=== PATIENT | female | born 1995 | race Caucasian/White ===

== ENCOUNTER 2020-03-28 06:51 | Emergency (ER) | payer OTHER, SELFPAY ==
--- NOTE | 2020-03-28 07:19 | US_ITS ---
EXAMINATION: US PELVIS CLINICAL INFORMATION: Right-sided cramping and bleeding. COMPARISON: None TECHNIQUE: Ultrasound of the pelvis is performed using both transabdominal and transvaginal transducers along with Doppler. Transvaginal imaging is performed due to inadequate visualization transabdominally. FINDINGS: UTERUS: The uterus is anteverted, anteflexed and measures 5.6 cm in length, 2.2 cm in AP and 3.3 cm in transverse dimension. The endometrial thickness is 0.4 cm. The uterus is homogeneous in echotexture. There is no focal lesion. ADNEXA: Both ovaries are visualized. There is normal color flow to the adnexa. There is no ovarian torsion. There is no pelvic ascites or fluid collection. Right ovary is not visualized. Left ovary measures 3.0 x 1.6 x 1.3 cm and volume 3.3 mL. It was visualized on transabdominal view only. It appears unremarkable. There is a small amount of free fluid in the cul-de-sac. US/US pelvic complete IMPRESSION: Unremarkable uterus. Unremarkable left ovary. Right ovary not seen.
--- NOTE | 2020-03-28 07:21 | ED.FEMALEGU ---
HPI - Female Genitourinary General Chief complaint: Abdominal Pain Stated complaint: vag bleeding Time Seen by Provider: 03/28/20 06:54 Source: patient Mode of arrival: ambulatory Limitations: no limitations History of Present Illness MD elicited complaint: vaginal bleeding Pertinent past history: other (due for depo 05/09) Onset (ago): day(s) (yesterday) Location of symptoms: pelvis Severity: moderate Female Urogenital Radiation: Non-Radiating Quality of pain: cramping Consistency: intermittent Vaginal bleeding: moderate, heavy and clots Exacerbating factors: none Relieving factors: none Associated symptoms: loss of appetite and other (noted unsure but over past 2 weeks lost 9 lbs ) Treatment prior to arrival: none Patient : No Related Data Allergies Allergy/AdvReac Type Severity Reaction Status Date / Time No Known Allergies Allergy Verified 03/28/20 07:19 Review of Systems Review of Systems: Constitutional : No Fever, No Chills ENT/Mouth : No sore throat, No Rhinorrhea Eyes: No Eye Pain, No Redness Cardiovascular : No Chest Pain, No SOB Respiratory : No Cough, No Sputum, No Wheezing Gastrointestinal : positive Nausea, No Vomiting, No Diarrhea, positive abdominal pain, Genitourinary : positive irregular bleeding, No Dysuria, No Urinary Frequency, positive pelvic pain Musculoskeletal : No Myalgias Skin : No rash Neuro : No Weakness, No Headache Psych : No Anxiety/Panic, No Depression Heme/Lymph: No bruising, No Lymphadenopathy Endocrine : No Polyuria, No Polydipsia All other systems reviewed and are negative PMFSH Past Medical History Attestation statement: The following information was validated with the patient. Medical History IBS (irritable bowel syndrome) Social History Social History (Updated 03/28/20 @ 07:23 by Deb Jiménez DO) Alcohol intake: unknown Smoking Status: Never smoker Use of substances other than those prescribed or required for medical reasons: Unknown Advance Directives: No Advance Directives Information Provided: No Physical Exam Vital Signs: Vital Signs: Last Vital Signs Temp 98.7 F 03/28/20 07:22 Pulse 88 03/28/20 07:22 Resp 18 03/28/20 07:22 BP 104/54 L 03/28/20 09:49 Pulse Ox 97 03/28/20 07:22 Body Mass Index 18.6 Appearance: Alert. Oriented X3. No acute distress. Eyes: Pupils equal, round and reactive to light. ENT: Pharynx normal. Neck: Normal inspection. Neck supple. CVS: Normal heart rate and rhythm. Pulses normal. Respiratory: No respiratory distress. Breath sounds normal. Abdomen: Soft and nontender. Skin: Skin warm and dry. Normal skin color. Normal skin turgor. Extremities: No lower extremity edema. No calf ttp Neuro: Oriented X 3. No motor deficit. No sensory deficit. Course Course Course Narrative: due to family issue has to leave prior to US read MDM - Female Genitourinary MDM Narrative Medical decision making narrative: 25 yo female on depo x 1 year no issues but since yesterday c/o vaginal bleeding with clots - no known bleeding issues, R sided pain at times will need labs, hcg, US to evaluate ovaries and uterus, dispo per results and findings. Lab Data Result diagrams: 03/28/20 07:37 03/28/20 07:38 Labs: Lab Results 03/28/20 03/28/20 03/28/20 Range/Units 07:37 07:37 07:38 WBC 6.0 (4.8-10.8) X10*3/uL RBC 4.52 (4.20-5.50) X10*6/uL Hgb 13.6 (12.0-16.0) g/dl Hct 41.1 (37-47) % MCV 90.9 (80-98) fL MCH 30.1 (27.0-33.0) pg MCHC 33.1 (31.0-35.0) g/dl RDW 11.9 (11.0-16.0) % Plt Count 273 (160-400) X10*3/uL MPV 10.0 (9.4-12.3) fL Immature Gran % (Auto) 0.3 (0.0-0.4) % Neut % (Auto) 65.4 (45-73) % Lymph % (Auto) 25.8 (20-40) % [place] % (Auto) 6.3 (2-11) % Eos % (Auto) 1.2 (0-4) % Baso % (Auto) 1.0 (0-2) % Lymph # (Auto) 1.6 (1.2-4.9) X10*3/uL [place] # (Auto) 0.4 (0.1-1.2) X10*3/uL Eos # (Auto) 0.1 (0.0-0.4) X10*3/uL Baso # (Auto) 0.1 (0.0-0.2) X10*3/uL Abs Immat Gran (auto) 0.02 (0.00-0.03) X10*3/uL Absolute Neuts (auto) 4.0 (2.0-8.3) X10*3/uL Absolute Nucleated RBC 0.000 (0.0-0.012) X10*3/uL Nucleated RBC % (auto) 0.0 (0.0-0.2) /100WBC PT 13.2 H (10.8-13.0) SEC INR 1.1 (0.9-1.1) APTT 31.9 (24.1-38.0) SEC Sodium 140 (135-145) mmol/L Potassium 4.1 (3.3-5.1) mmol/l Chloride 109 H (96-108) mmol/L Carbon Dioxide 24 (22-29) mmol/L Anion Gap 11 L (12-20) BUN 10 (9-16) mg/dL Creatinine 0.89 (0.5-1.4) mg/dL Estim Creat Clear Calc 71.7 Estimated GFR > 60 Random Glucose 89 (60-115) mg/dL Calcium 9.3 (8.4-10.2) mg/dL Magnesium 2.3 (1.6-2.6) mg/dL Total Bilirubin 0.9 (0.0-1.0) mg/dL Direct Bilirubin 0.4 (0.0-0.5) mg/dL AST 17 (5-31) U/L ALT 8 (0-31) U/L Alkaline Phosphatase 54 (39-117) U/L Total Protein 6.8 (6.5-8.0) g/dL Albumin 4.6 (3.5-5.0) g/dL Beta HCG, Quant < 2 mIU/mL Urine Color Urine Appearance Urine pH (5.0-8.0) Ur Specific [place] (1.005-1.025) Urine Protein (NEG-TRACE) MG/DL Urine Glucose (UA) (NEG) MG/DL Urine Ketones (NEG) MG/DL Urine Blood (NEG) Urine Nitrite (NEG) Ur Leukocyte Esterase (NEG) Urine RBC (0) /HPF Urine WBC (0-4) /HPF Ur Squamous Epith Cells /LPF Urine Bacteria /LPF Urine Mucus /LPF 03/28/20 Range/Units 08:17 WBC (4.8-10.8) X10*3/uL RBC (4.20-5.50) X10*6/uL Hgb (12.0-16.0) g/dl Hct (37-47) % MCV (80-98) fL MCH (27.0-33.0) pg MCHC (31.0-35.0) g/dl RDW (11.0-16.0) % Plt Count (160-400) X10*3/uL MPV (9.4-12.3) fL Immature Gran % (Auto) (0.0-0.4) % Neut % (Auto) (45-73) % Lymph % (Auto) (20-40) % [place] % (Auto) (2-11) % Eos % (Auto) (0-4) % Baso % (Auto) (0-2) % Lymph # (Auto) (1.2-4.9) X10*3/uL [place] # (Auto) (0.1-1.2) X10*3/uL Eos # (Auto) (0.0-0.4) X10*3/uL Baso # (Auto) (0.0-0.2) X10*3/uL Abs Immat Gran (auto) (0.00-0.03) X10*3/uL Absolute Neuts (auto) (2.0-8.3) X10*3/uL Absolute Nucleated RBC (0.0-0.012) X10*3/uL Nucleated RBC % (auto) (0.0-0.2) /100WBC PT (10.8-13.0) SEC INR (0.9-1.1) APTT (24.1-38.0) SEC Sodium (135-145) mmol/L Potassium (3.3-5.1) mmol/l Chloride (96-108) mmol/L Carbon Dioxide (22-29) mmol/L Anion Gap (12-20) BUN (9-16) mg/dL Creatinine (0.5-1.4) mg/dL Estim Creat Clear Calc Estimated GFR Random Glucose (60-115) mg/dL Calcium (8.4-10.2) mg/dL Magnesium (1.6-2.6) mg/dL Total Bilirubin (0.0-1.0) mg/dL Direct Bilirubin (0.0-0.5) mg/dL AST (5-31) U/L ALT (0-31) U/L Alkaline Phosphatase (39-117) U/L Total Protein (6.5-8.0) g/dL Albumin (3.5-5.0) g/dL Beta HCG, Quant mIU/mL Urine Color DARK YELLOW Urine Appearance HAZY Urine pH 6.0 (5.0-8.0) Ur Specific [place] >= 1.030 H (1.005-1.025) Urine Protein NEG (NEG-TRACE) MG/DL Urine Glucose (UA) NEG (NEG) MG/DL Urine Ketones 5 (NEG) MG/DL Urine Blood TRACE (NEG) Urine Nitrite NEG (NEG) Ur Leukocyte Esterase NEG (NEG) Urine RBC 1-4 (0) /HPF Urine WBC 0-2 (0-4) /HPF Ur Squamous Epith Cells 3+ /LPF Urine Bacteria NONE /LPF Urine Mucus 3+ /LPF Discharge Plan Discharge Clinical Impression: Abnormal vaginal bleeding Patient Disposition: Home, Self-Care Instructions: Dysfunctional Uterine Bleeding (ED) Additional Instructions: return to ED for any worsening symptoms or concerns you left prior to US results we will call you [facility] any abnormality Referrals: Rosa Maria Bazzi MD [Primary Care Provider] - 2 days (or your OBGYN provider within the next week) Stand Alone Forms: Work/School Release
[2020-03-28 07:22] VITALS: BP 125/75; PULSE 88; RESP 18; TEMP 37.1; O2SAT 97; BMI 18.6
[2020-03-28 07:46] LABS: Basophils Absolute Auto 0.1 X10*3/uL (0.0-0.2); Eosinophils Absolute Auto 0.1 X10*3/uL (0.0-0.4); Eosinophils Percent Auto 1.2 % (0-4); Hematocrit 41.1 % (37-47); Hemoglobin 13.6 g/dl (12.0-16.0); Imm Gran Abs Auto 0.02 X10*3/uL (0.00-0.03); Imm Gran Pct Auto 0.3 % (0.0-0.4); Lymphocytes Absolute Auto 1.6 X10*3/uL (1.2-4.9); Lymphocytes Percent Auto 25.8 % (20-40); MANUAL DIFF FLAG NO; Mean Corpuscular HGB Conc 33.1 g/dl (31.0-35.0); Mean Corpuscular Hemoglobin 30.1 pg (27.0-33.0); Mean Corpuscular Volume 90.9 fL (80-98); Monocytes Absolute Auto 0.4 X10*3/uL (0.1-1.2); Monocytes Percent Auto 6.3 % (2-11); Neutrophils Percent Auto 65.4 % (45-73); Platelet Count 273 X10*3/uL (160-400); Red Blood Count 4.52 X10*6/uL (4.20-5.50); Red Cell Distribution Width 11.9 % (11.0-16.0)
[2020-03-28 07:57] LABS: INTERNATIONAL NORM RATIO 1.1 (0.9-1.1); Prothrombin Time 13.2 SEC (10.8-13.0)
[2020-03-28 08:00] LABS: Partial Thromboplastin Time 31.9 SEC (24.1-38.0)
[2020-03-28 08:15] LABS: Alanine Aminotransferase 8 U/L (0-31); Albumin Level 4.6 g/dL (3.5-5.0); Alkaline Phosphatase 54 U/L (39-117); Anion Gap 11 (12-20); Aspartate Amino Transferase 17 U/L (5-31); Bilirubin Direct 0.4 mg/dL (0.0-0.5); Bilirubin Total 0.9 mg/dL (0.0-1.0); Blood Urea Nitrogen 10 mg/dL (9-16); Calcium 9.3 mg/dL (8.4-10.2); Carbon Dioxide 24 mmol/L (22-29); Chloride 109 mmol/L (96-108); Creatinine Clr Calc Pharmacy 71.7; Estimated Glomerular Filt Rate > 60; Glucose Random 89 mg/dL (60-115); Magnesium 2.3 mg/dL (1.6-2.6); Potassium 4.1 mmol/l (3.3-5.1); Sodium 140 mmol/L (135-145); Total Protein 6.8 g/dL (6.5-8.0)
[2020-03-28 08:22] LABS: HCG Quantitative < 2 mIU/mL
[2020-03-28 09:04] LABS: Glucose Urine UA NEG (NEG); Leukocyte Esterase Urine NEG (NEG); Nitrite Urine NEG (NEG); Specific Gravity - Urine >= 1.030 (1.005-1.025); Urine Blood TRACE (NEG); Urine Ketones 5 MG/DL (NEG); Urine Protein NEG (NEG-TRACE)
[2020-03-28 09:06] LABS: Appearance Urine HAZY; Color Urine DARK YELLOW
[2020-03-28 09:11] LABS: Mucus Urine 3+ /LPF; Squamous Epithelial Cell Urine 3+ /LPF; WBC Urine 0-2 /HPF (0-4)
[2020-03-28 09:49] VITALS: BP 104/54
== END 2020-03-28 10:12 | disposition home or self-care (01) ==
PROVIDERS: Emergency Provider Emergency Medicine; PCP Internal Medicine
DX: N93.9 Abnormal uterine and vaginal bleeding, unspecified (principal); R10.2 Pelvic and perineal pain
CPT/HCPCS: 36415; 76856; 80048; 80076; 81001; 83735; 84702; 85025; 85610; 85730; 99284

== ENCOUNTER 2020-07-11 14:27 | Outpatient (REF) | payer OTHER, SELFPAY ==
[2020-07-11 14:47] LABS: COVID-19 Test Negative (Negative); IDNOW Serial# 55D5AD1C
== END 2020-07-11 14:28 | disposition home or self-care (01) ==
LOC: HO.EMPCOV 14:27
PROVIDERS: Visit Provider Internal Medicine
DX: Z20.822 Contact with and (suspected) exposure to COVID-19 (principal)
CPT/HCPCS: 36415; 87635; C9803

== ENCOUNTER 2020-07-15 08:34 | Outpatient (REF) | payer OTHER, SELFPAY ==
[2020-07-15 08:55] LABS: COVID-19 Test Negative (Negative); IDNOW Serial# 55D5AD1C
== END 2020-07-15 08:35 | disposition home or self-care (01) ==
LOC: HO.EMPCOV 08:34
PROVIDERS: Visit Provider Internal Medicine
DX: Z20.822 Contact with and (suspected) exposure to COVID-19 (principal)
CPT/HCPCS: 36415; 87635; C9803

== ENCOUNTER 2020-07-17 13:26 | Outpatient (REF) | payer OTHER, SELFPAY ==
[2020-07-17 14:08] LABS: COVID-19 Test Negative (Negative)
== END 2020-07-17 13:27 | disposition home or self-care (01) ==
LOC: HO.EMPCOV 13:26
PROVIDERS: Visit Provider Internal Medicine
DX: Z20.822 Contact with and (suspected) exposure to COVID-19 (principal)
CPT/HCPCS: 36415; 87635; C9803; U0003

== ENCOUNTER 2020-08-09 08:32 | Outpatient (REF) | payer OTHER, SELFPAY ==
--- NOTE | ~2020-08-09 | CT_ITS ---
EXAMINATION: CT ABDOMEN AND PELVIS WITH CONTRAST CLINICAL INFORMATION: Generalized abdominal pain. COMPARISON: Ultrasound pelvis 03/28/2020. TECHNIQUE: Multidetector volumetric images were obtained from the superior aspect of the liver through the pubic symphysis following administration 85 mL of Omnipaque 350 intravenous and 450 mL of Readi-Cat contrast. Sagittal and coronal reformatted images were obtained on the technologist's workstation. This CT examination was performed using dose optimization techniques as appropriate, variously including the following: *Automated exposure control *Adjustment of mA and/or kV according to patient size (this includes techniques or standardized protocols for targeted exams where dose is matched to indication/reason for exam; i.e. extremities or head) *Use of iterative reconstruction technique DLP: 178 mGy-cm FINDINGS: LUNG BASES: The visualized lung bases are unremarkable. LIVER, GALLBLADDER, AND BILIARY TREE: The liver is normal in size, shape, and attenuation. No focal hepatic lesion or biliary ductal dilatation is present. The gallbladder is unremarkable with no evidence of radiopaque gallstones, gallbladder wall thickening, or obvious pericholecystic inflammatory changes. PANCREAS: Unremarkable. SPLEEN: Unremarkable. ADRENAL GLANDS: Unremarkable. KIDNEYS AND URETERS: The kidneys are normal in size, shape, and attenuation. No hydronephrosis, hydroureter, or calculi are seen. No perinephric stranding. BLADDER: The bladder is distended but otherwise unremarkable. GASTROINTESTINAL TRACT: There is scattered stool and oral contrast seen throughout the colon without significant distention. The small bowel loops are normal caliber. Appendix is not visualized. No free air or free fluid is seen. ABDOMINAL WALL: No significant hernia is appreciated. LYMPH NODES: Normal. VASCULAR: Unremarkable. PELVIC VISCERA: The uterus is anteverted and appears unremarkable. There is no free fluid or adnexal mass seen. No abnormal lymph nodes are seen. OSSEOUS STRUCTURES: No lytic or sclerotic process seen. CT/CT abdomen pelvis w con IMPRESSION: No acute intra-abdominal process seen. Moderate constipation.
[2020-08-09] MEDS: iohexoL 350 MG/ML 100 ML INFUS..BTL IV (12:12)
[2020-08-09] MEDS: Barium Sulfate Oral (Berry) 450 ML ORAL.SUSP 900 ML PO (12:20)
== END 2020-08-09 08:33 | disposition home or self-care (01) ==
LOC: HO.CT 08:32
PROVIDERS: PCP Nurse Practitioner Family; Visit Provider Nurse Practitioner Family
DX: R10.84 Generalized abdominal pain (principal)
CPT/HCPCS: 74177; Q9967

== ENCOUNTER → 2020-08-13 14:18 | Outpatient (BNVA) | payer OTHER, SELFPAY | PROVIDERS: PCP Nurse Practitioner Family; Visit Provider Internal Medicine Gastroenterology ==

== ENCOUNTER 2020-09-03 08:44 | Outpatient (REF) | payer OTHER, SELFPAY ==
[2020-09-03 09:06] LABS: COVID-19 Test Negative (Negative); IDNOW Serial# 55D5AD1C
== END 2020-09-03 08:45 | disposition home or self-care (01) ==
LOC: HO.LAB 08:44
PROVIDERS: Visit Provider Internal Medicine
DX: Z20.822 Contact with and (suspected) exposure to COVID-19 (principal)
CPT/HCPCS: 36415; 87635; C9803

== ENCOUNTER 2021-02-24 12:05 | Emergency (ER) | payer OTHER, SELFPAY | END 2021-02-24 15:43 | disposition left against medical advice (07) | PROVIDERS: Emergency Provider Emergency Medicine | DX: R68.89 Other general symptoms and signs (principal) ==

== ENCOUNTER 2021-03-12 08:58 | Emergency (ER) | payer OTHER, SELFPAY ==
--- NOTE | ~2021-03-12 | CT_ITS ---
EXAMINATION: CT HEAD WITHOUT CONTRAST CLINICAL INFORMATION: Headache, nausea and vomiting. COMPARISON: None TECHNIQUE: Contiguous axial imaging was performed from the skull base to vertex without intravenous administration of contrast. This CT examination was performed using dose optimization techniques as appropriate, variously including the following: *Automated exposure control *Adjustment of mA and/or kV according to patient size (this includes techniques or standardized protocols for targeted exams where dose is matched to indication/reason for exam; i.e. extremities or head) *Use of iterative reconstruction technique DLP: 609 mGy-cm FINDINGS: There is no evidence of acute intracranial hemorrhage or territorial infarction. No abnormal mass effect or midline shift is seen. Nettles to white matter differentiation is well preserved. No extra-axial fluid collections are identified. The ventricles are normal in size. There is no abnormal attenuation within the brain parenchyma. The osseous structures and soft tissues are normal. The mastoid air cells and visualized portions of the paranasal sinuses are well aerated. CT/CT head/brain wo con IMPRESSION: No acute intracranial process seen.
[2021-03-12 09:06] VITALS: BP 132/75; PULSE 89; RESP 16; TEMP 37.3; O2SAT 97; BMI 18.4
[2021-03-12 09:37] LABS: UPreg QC Valid YES
[2021-03-12 09:38] LABS: Urine Pregnancy NEGATIVE (NEGATIVE)
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
[2021-03-12] MEDS: Ondansetron ODT 4 MG TAB.RAPDIS TRANSLINGU (10:57)
== END 2021-03-12 11:57 | disposition home or self-care (01) ==
PROVIDERS: Physician Assistant; Emergency Provider Emergency Medicine
DX: S06.0X0A Concussion without loss of consciousness, initial encounter (principal); V89.2XXA Person injured in unspecified motor-vehicle accident, traffic, initial encounter; Y93.89 Activity, other specified; Y92.410 Unspecified street and highway as the place of occurrence of the external cause; Y99.9 Unspecified external cause status
CPT/HCPCS: 70450; 81025; 99284

== ENCOUNTER 2022-04-09 15:13 | Outpatient (REF) | payer OTHER, SELFPAY ==
[2022-04-10 12:51] LABS: Influenza A PCR POSITIVE (Negative); Influenza B PCR NEGATIVE (Negative); Resp Syncy Virus RNA Qual PCR NEGATIVE (Negative); SARS COV2 PCR INHOUSE NEGATIVE (Negative)
== END 2022-04-09 15:14 | disposition home or self-care (01) ==
LOC: HO.LAB 15:13
PROVIDERS: Visit Provider Family Medicine
DX: Z20.822 Contact with and (suspected) exposure to COVID-19 (principal); R05.9 Cough, unspecified
CPT/HCPCS: 0241U

== ENCOUNTER 2022-06-29 08:48 | Outpatient (REF) | payer OTHER, SELFPAY ==
[2022-06-29 11:55] LABS: Hematocrit 40.7 % (37.0-47.0); Hemoglobin 13.3 g/dl (12.0-16.0); Mean Corpuscular HGB Conc 32.7 g/dl (31.0-35.0); Mean Corpuscular Hemoglobin 30.3 pg (27.0-33.0); Mean Corpuscular Volume 92.7 fL (80.0-98.0); Mean Platelet Volume 10.8 fL (9.4-12.3); Platelet Count 295 X10*3/uL (160-400); Red Blood Count 4.39 X10*6/uL (4.20-5.50); Red Cell Distribution Width 12.2 % (11.0-16.0); White Blood Count 6.6 X10*3/uL (4.8-10.8)
[2022-06-29 12:25] LABS: Alanine Aminotransferase 11 U/L (0-31); Albumin Level 4.3 g/dL (3.5-5.0); Alkaline Phosphatase 63 U/L (39-117); Anion Gap 11 (12-20); Aspartate Amino Transferase 19 U/L (5-31); Bilirubin Total 0.2 mg/dL (0.0-1.0); Blood Urea Nitrogen 12 mg/dL (9-16); Calcium 9.3 mg/dL (8.4-10.2); Carbon Dioxide 30 mmol/L (22-29); Chloride 107 mmol/L (96-108); Cholesterol 135 mg/dL; Estimated Glomerular Filt Rate > 60; Glucose Fasting 90 mg/dL (60-99); HDL Cholesterol 51 mg/dL; LDL Cholesterol Calculated 72 mg/dl; Magnesium 2.1 mg/dL (1.6-2.6); Potassium 4.6 mmol/L (3.3-5.1); Sodium 143 mmol/L (135-145); TSH reflex Free T4 0.96 uIU/mL (0.32-4.0); Total Protein 6.4 g/dL (6.5-8.0); Triglycerides 60 mg/dL; Vitamin D 25-OH Total 9.3 ng/mL (>30)
== END 2022-06-29 08:49 | disposition home or self-care (01) ==
LOC: HO.HMGCLDS 08:48
PROVIDERS: PCP Nurse Practitioner Family; Visit Provider Nurse Practitioner Family
DX: Z00.00 Encounter for general adult medical examination without abnormal findings (principal)
CPT/HCPCS: 36415; 80053; 80061; 82306; 83735; 84443; 85027

== ENCOUNTER 2022-09-07 15:28 | Outpatient (REF) | payer OTHER, SELFPAY ==
--- NOTE | ~2022-09-07 | MM_ITS ---
EXAMINATION: MM DIAGNOSTIC DIGITAL BREAST TOMOSYNTHESIS, BILATERAL US DIAGNOSTIC ULTRASOUND BREAST, LEFT CLINICAL INFORMATION: 27-year-old with several day history left breast pain and fullness left lateral breast. No discharge or erythema. No prior breast imaging. Patient notes family history premenopausal breast cancer paternal grandmother. The lifetime risk of breast cancer based on the Tyrer-Cuzick Model is 17%. COMPARISON: None (current study represents initial baseline exam). TECHNIQUE: Left breast ultrasound is initially performed using grayscale imaging and color Doppler without and with harmonics. Patient is able to point areas of clinical concern at time of imaging. Subsequently, Digital breast tomosynthesis is performed in both the craniocaudal and mediolateral oblique views along with computer-aided detection (CAD). Synthesized 2D images are generated from the tomosynthesis. FINDINGS: Ultrasound: Left breast ultrasound demonstrates no cystic or solid mass, architectural abnormality, or focal duct ectasia. No skin thickening or edema tracking in soft tissue planes. Mammography: The breasts are heterogeneously dense, which may obscure small masses (ACR BI-RADS breast composition Category c). There are no significant masses, abnormal calcifications, or other abnormalities. No architectural abnormality. No skin thickening or coarsening of the stromal markings. The axilla are unremarkable. Results are discussed with the patient at time of visit. MM/MM tomosynthesis diagnostic BI IMPRESSION: -No mammographic evidence of malignancy or inflammatory changes. -Unremarkable left breast ultrasound. ASSESSMENT: BI-RADS 1: Negative RECOMMENDATION: -Patient should be managed based on the clinical impression. If clinically indicated, further evaluation may be considered with surgical consult. Decision to proceed with biopsy should be based on clinical grounds and degree of clinical concern. -Given the family history, patient may be eligible for genetic testing consultation. -Otherwise, routine annual screening mammography, beginning age 40 or earlier as clinical risk factors warrant. This patient's information was entered into a reminder system with a target due date for their next mammogram.
== END 2022-09-07 15:29 | disposition home or self-care (01) ==
LOC: HO.MAMMO 15:28
PROVIDERS: Visit Provider Nurse Practitioner Family
DX: N63.25 Unspecified lump in the left breast, overlapping quadrants (principal)
CPT/HCPCS: 76642; 77062; 77066

== ENCOUNTER 2023-01-04 08:27 | Outpatient (AMB) | payer OTHER, SELFPAY ==
[2023-01-04 08:39] VITALS: BP 116/64; PULSE 79; TEMP 36.6; O2SAT 99; BMI 21.3
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
== END 2023-01-04 09:40 ==
PROVIDERS: PCP Nurse Practitioner Family; Visit Provider Nurse Practitioner Family
DX: F41.9 Anxiety disorder, unspecified (principal); F32.A Depression, unspecified; N92.6 Irregular menstruation, unspecified; R53.83 Other fatigue
CPT/HCPCS: 99213

== ENCOUNTER 2023-01-04 09:28 | Outpatient (REF) | payer OTHER, SELFPAY | END 2023-01-04 09:29 | disposition home or self-care (01) | LOC: HO.WFDLDS 09:28 | PROVIDERS: Visit Provider Nurse Practitioner Family | DX: Z13.89 Encounter for screening for other disorder (principal) ==

== ENCOUNTER 2023-01-11 12:38 | Outpatient (AMB) | payer OTHER, SELFPAY ==
--- NOTE | 2023-01-11 13:21 | AM.OFFWIN_ITS ---
Intake Vital Signs 01/11/23 13:29 Height 5 ft 2 in Weight 116 lb 4 oz BMI 21.3 BP 102/74 Blood Pressure Location Rt brachial Position Sitting Pulse 86 Pulse Source Pulse Oximeter Temp 98.2 F Temp Source Oral Pulse Oximetry (%) 98 Oxygen Delivery Method Room Air Intake Visit Reasons: EST/stomach issues, throwing up Intake Note: patient is here today for sharp pain in abd, also been vomiting for 3 days. Patient has concerns of irregular period. Patient Tobacco Use Status: Never used Tobacco Allergies No Known Allergies Allergy (Verified 01/11/23 13:30) Do you need a note to return to daycare/school/sports/work: Yes HPI HPI Comments History of Present Illness Details This is a 27-year-old female with a past medical history of dysmenorrhea, menorrhagia and IBS presenting for evaluation of nausea, vomiting and suprapubic pain. Patient states that she has had nausea and vomiting for the past three days which has occurred intermittently over the past 3 months. She also reports a sharp suprapubic pain that has been present intermittently over the past 2 days. She has not taken any medication for her pain. Patient states that she has an appointment scheduled with Gastroenterology as an outpatient. Patient is not taking any medication for nausea currently. Patient states her last menstrual period started today and has been heavy which is normal for her. Patient states that last week she took two tests at home which were both negative. Patient does report urinary frequency without dysuria or vaginal discharge. 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 Cognitive needs: No Hearing needs: No Vision needs: No Review of Systems Const All systems reviewed & are unremarkable except as noted in HPI and below Denies chills, Denies fatigue and Denies fever(s) Eyes Reports no additional complaints ENT Reports no additional complaints GI Reports abdominal pain, Denies constipation, Reports diarrhea, Reports nausea and Reports vomiting Reports menorrhagia, Denies pelvic pain, Denies vaginal discharge and Reports other (urinary frequency) Skin/Breast Reports system reviewed and no additional complaints, except as documented Neuro Reports no additional complaints Psych Reports no additional complaints Endo Denies fatigue Physical Exam Vital Signs: Last Vital Signs Temp 98.2 F 01/11/23 13:29 Pulse 86 01/11/23 13:29 BP 102/74 01/11/23 13:29 Pulse Ox 98 01/11/23 13:29 Oxygen Delivery Method Room Air 01/11/23 13:29 BMI result Body Mass Index 21.3 Const General: cooperative, healthy appearing, comfortable and no acute distress; No ill appearing Nutritional Appearance: average body habitus Orientation/consciousness: patient oriented x3 Limitations: no limitations Cardio Rate: regular rate Rhythm: regular rhythm GI Inspection: Yes normal to inspection Palpation (GI): Soft to palpation, Tenderness to palpation present (GI) suprapubicly, no guarding, no masses, No Rebound tenderness present and Bladder palpation abnormal Auscultation: normal bowel sounds General: Yes Bladder palpation abnormal and Yes no CVA tenderness Back/Spine/Pelvis Back: no CVA tenderness Skin General skin exam: no rashes or lesions noted Neuro General: patient oriented x3 Psych Appearance: grossly normal Mental Status: mental status grossly normal Speech and movement: Normal speech and movement present Affect: normal affect Attitude: cooperative Thought process: Normal thought process present Thought content: Normal thought content present Insight: Good insight present (Psych) Judgement: Good judgement present (Psych) Results AMB Urinalysis, Automated UA Leukoctes 0 Emili/uL Last Edit by Margarito Sanchez CMA on 01/11/23 13:55 UA Nitrite Negative Last Edit by Margarito Sanchez CMA on 01/11/23 13:55 UA Urobilinogen 1 mg/dL Last Edit by Margarito Sanchez CMA on 01/11/23 13:5 5 UA Protein 0 mg/dL Last Edit by Margarito Sanchez CMA on 01/11/23 13:55 UA pH 6.0 Last Edit by Margarito Sanchez CMA on 01/11/23 13:55 UA Blood 200 Nick/uL Last Edit by Margarito Sanchez CMA on 01/11/23 13:55 UA Specific [place] 1.015 Last Edit by Margarito Sanchez CMA on 01/11/23 13:55 UA Ketone Negative Last Edit by Margarito Sanchez CMA on 01/11/23 13:55 UA Bilirubin 0 mg/dL Last Edit by Margarito Sanchez CMA on 01/11/23 13:55 UA Glucose 0 mg/dL Last Edit by Margarito Sanchez CMA on 01/11/23 13:55 AMB Test Urine AMB Test Urine Negative Last Edit by Margarito Sanchez CMA on 01/11/23 13:55 Results Reviewed Results Reviewed: Urine hCG negative, urinalysis reviewed Assessment & Plan Assessment & Plan (1) Urinary frequency: Code(s): R35.0 - Frequency of micturition (2) Acute nausea with nonbilious vomiting: Code(s): R11.2 - Nausea with vomiting, unspecified Plan: Patient is seen and evaluated. Her medical history is reviewed. Patient's urine hCG as well as her urinalysis are negative and there is no indication for a urine culture at this time. Patient will be discharged home with Svitlana and instructed to follow-up with her primary care providers outpatient. Orders: Orders AMB Urinalysis Automated Today Z13.9 - Encounter for screening, unspecified AMB HCG Urine Test Today R35.0 - Frequency of micturition Medications: New ondansetron 4 mg PO Q8H PRN 10 tabs 0RF nausea and vomiting Coding Level of Care Code Est Pt Level 3 (03089) Diagnoses Urinary frequency R35.0 Acute nausea with nonbilious vomiting R11.2 Time Spent (min) 25
[2023-01-11 13:29] VITALS: BP 102/74; PULSE 86; TEMP 36.8; O2SAT 98; BMI 21.3
== END 2023-01-11 14:03 | disposition home or self-care (01) ==
PROVIDERS: PCP Nurse Practitioner Family; Visit Provider Physician Assistant
DX: R35.0 Frequency of micturition (principal); Z32.02 Encounter for pregnancy test, result negative
CPT/HCPCS: 81003; 81025; 99213

== ENCOUNTER 2023-04-06 09:06 | Outpatient (AMB) | payer OTHER, SELFPAY ==
--- NOTE | 2023-04-06 09:33 | AM.OFFWIN_ITS ---
Intake Vital Signs 04/06/23 09:34 Height 5 ft 2 in Weight 49.895 kg BMI 20.1 BP 102/62 Blood Pressure Location Rt brachial Position Sitting Pulse 67 Pulse Source Pulse Oximeter Temp 98.3 F Temp Source Temporal Artery Scan Pulse Oximetry (%) 97 Intake Visit Reasons: EP, upset stomach, nausea ([phone]) Intake Note: pt is here for c.o vomitting, hives all over face Patient Tobacco Use Status: Never used Tobacco Allergies No Known Allergies Allergy (Verified 04/06/23 09:34) Do you need a note to return to daycare/school/sports/work: Yes HPI HPI Comments History of Present Illness Details [id number] 28-year-old female presents to the clini c with hives on face since last night, patient ate chicken wings, had an upset stomach had nausea, vomiting and abdominal discomfort which have since resolved. Now having hives on face. Has been trying to get into allergy and immunology however is in the middle of switching PCPs. Denies chest pain, shortness of breath, nausea, vomiting, abdominal pain at this time. No changes in voice, drooling. Patient does not have an EpiPen. Patient denies new lotions or products. Physical exam with hives to face. This is likely allergic reaction. Unlikely anaphylaxis or respiratory distress at this time Plan at this time will give allergy and immunology follow-up. Will discharge with prednisone and EpiPen. Educated patient on diagnosis and treatment plan, answered all question, patient verbalizes understanding. At this time patient will be discharged home, advised to return with new or worsening symptoms. Educated on worrisome signs and symptoms and when to return. At this time I feel comfortable discharge home. I did have a long conversation with patient of proper use of EpiPen, only an emergency, 1 is to be used she should seek medical attention afterwards. I will put in a consult for Allergy and immunology and tagged patient's new PCP in this note. 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 Cognitive needs: No Hearing needs: No Vision needs: No Review of Systems Const Details: Constitutional : No Weight loss, No Fever, No Chills, No Fatigue, No Malaise ENT/Mouth : No sore throat, No Rhinorrhea Eyes: No Eye Pain, No Swelling, No Redness Cardiovascular : No Chest Pain, No SOB, No Dyspnea on Exertion, No Orthopnea, No Edema, No Palpitations Respiratory : No Cough, No Sputum, No Wheezing Gastrointestinal : No Nausea, No Vomiting, No Diarrhea, No Constipation, No abdominal Pain, No Hematochezia, No Melena Genitourinary : No Dysuria, No Urinary Frequency, No Hematuria, Musculoskeletal : No joint pain, No Myalgias, No Joint Swelling Skin : No Skin Lesions, + rash Neuro : No Weakness, No Numbness, No Dizziness, No Headache Psych : No Anxiety/Panic, No Depression All other systems reviewed and are negative All systems reviewed & are unremarkable except as noted in HPI and below Physical Exam Vital Signs: Last Vital Signs Temp 98.3 F 04/06/23 09:34 Pulse 67 04/06/23 09:34 BP 102/62 04/06/23 09:34 Pulse Ox 97 04/06/23 09:34 BMI result Body Mass Index 20.1 vss Appearance: Alert.? Oriented X3.? No acute distress.? Patient speaking in full sentences controlling secretions well Head: Normocephalic, atraumatic, no step-offs or deformities +Urticaria to face Eyes: Pupils equal, round and reactive to light.? ENT: Pharynx normal.? Patent airway Neck: Normal inspection.? Neck supple.? CVS: Normal heart rate and rhythm.? Pulses normal.? Respiratory: No respiratory distress.? Breath sounds normal.? Abdomen: Soft and nontender.? Skin: Skin warm and dry.? Normal skin color.? Normal skin turgor.? Extremities: No lower extremity edema.? No calf ttp. 5/5 strength to bilateral upper and lower extremities Back: No midline tenderness, no C-spine tenderness, full range of motion, no CVA tenderness bilaterally Neuro: Oriented X 3.? No motor deficit.? No sensory deficit. CN 2-12 intact Assessment & Plan Assessment & Plan (1) Allergic reaction: Code(s): T78.40XA - Allergy, unspecified, initial encounter Plan Take your medications as prescribed. If you were prescribed antibiotics today, it is important that you take your medication to their entirety, do not skip any doses, do not finish them early. Follow-up with your primary care provider this week. Return to the emergency department with new or worsening symptoms. Such as fevers, chills, chest pain, shortness of breath, nausea, vomiting, dizziness, headache, vision changes, lethargy In case of emergency call 911 Orders: Referrals Allergy & Immunology Referral T78.40XA - Allergy, unspecified, initial encounter Medications: New prednisone 40 mg (2 x 20 mg) PO DAILY 10 tabs 0RF 5 days epinephrine (EpiPen 2-Binh) 0.3 mg (0.3 mL) IM Q4H PRN 2 ea 0RF anaphylaxis Coding Level of Care Code Est Pt Level 3 (64448) Diagnoses Allergic reaction T78.40XA
[2023-04-06 09:34] VITALS: BP 102/62; PULSE 67; TEMP 36.8; O2SAT 97; BMI 20.1
== END 2023-04-06 09:52 | disposition home or self-care (01) ==
PROVIDERS: PCP Nurse Practitioner Family; Visit Provider Physician Assistant
DX: T78.40XA Allergy, unspecified, initial encounter (principal)
CPT/HCPCS: 99213

== ENCOUNTER 2023-04-15 14:12 | Outpatient (AMB) | payer OTHER, SELFPAY ==
--- NOTE | 2023-04-15 14:13 | A.OFFVIS_ITS ---
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 Allergies No Known Allergies Allergy (Verified 04/15/23 14:13) Medication List - Last Reconciled 04/15/23 by Muna Holman CNM bupropion HCl (Wellbutrin XL) 150 mg PO QAM 30 days cholecalciferol (vitamin D3) 25 mcg PO DAILY 90 days epinephrine (EpiPen 2-Binh) 0.3 mg (0.3 mL) IM Q4H PRN Is last menstrual period known: Yes Last menstrual period: 03/21/23 Patient : No Do you need a note to return to daycare/school/sports/work: No HPI CARE SUPPORT REPRESENTATIVE AUB/PCP Ref HPI Details 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 She was on fluoxetine and she did not like how that made her feel at all and she started with a new psychiatrist who started her on Wellbutrin and she feels she is doing very well on that but now her insurance just changed at the beginning in March and she is waiting for a new psychiatrist. She feels emotionally very symptomatic especially the 2 weeks before her. But she also has no more notable GI symptoms but she has those all the time and she thinks that is related to her IBS. She has never had a pelvic exam and Pap smear and she feels she is not ready for today because she is dealing with ?sensitive stomach today ?and is afraid of having diarrhea so wants to put that off. 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 Cognitive needs: No Hearing needs: No Vision needs: No Female Reproductive History Menstrual Age of Menarche: 18 Duration of menses: 6-7 days Date of last menstrual period: 03/21/23 control method: none History of abnormal pap smear: No (no previous pap) Physical Exam Vital Signs: Last Vital Signs BP 118/68 04/15/23 14:25 BMI result Body Mass Index 20.3 Assessment & Plan Assessment & Plan (1) Anxiety: Code(s): F41.9 - Anxiety disorder, unspecified (2) Depression: Code(s): F32.9 - Major depressive disorder, single episode, unspecified Qualifiers: Depression Type: unspecified Qualified Code(s): F32.A - Depression, unspecified (3) Menorrhagia with regular cycle: Code(s): N92.0 - Excessive and frequent menstruation with regular cycle (4) IBS (irritable bowel syndrome): Code(s): K58.9 - Irritable bowel syndrome without diarrhea Plan Lengthy discussion about all of the options that could ameliorate her symptoms. -I reviewed with the patient, all of the currently common used methods of control that are available. We reviewed how they work in the body, how they are taken, common side effects, uncommon side effects, precautions, and contraindications. -Discussed also factors that influence their effectiveness and use, and womens satisfaction with the method. -Discussed how each are used, and drawbacks of each method as well. -Methods covered included: condoms, control pills, control patches, control rings, Depo-Provera, Nexplanon, Mirena and Kyleena IUDs, and ParaGard IUDs. All of the above methods were covered in great detail including their side effect profiles and common experiences that women have and ways to mitigate against the negative experiences including attention to diet and exercise patient's with bleeding challenges that may occur her and efforts to time the initiation of the method to this start of the menstrual period. Discussed her history of depression and she says she was recently diagnosed as bipolar as well. Suggested since she is not interested in Depo-Provera or the IUDs and has not been able to work up the courage yet to have even of 1st pelvic exam that an IUD would not be top of the list but I did review how they work in case she considers it for the future. She decided that she will go back on control pills and prescription sent for low-dose control pill all of the low-dose control pills options flagged in the system as contraindicated because of her major depression however she is being monitored and she is going to see how she does with that. Plan made for her to return in 3 months and see how she is doing with the pills a whether not she is happy with the effect they are having on her period and mood changes etc. along with her continuing with her mental health care and plan. We will plan for her 1st pelvic exam and Pap smear and STI testing then. I did review in the chart her last visit with her period. her primary care provider when this referral was sent and also that in the last 6 months she did have a blood test to check for anemia and she was not anemic at that point. RTC 3 months. I reviewed danger signs of the control pills and what to watch for and we also discussed the use of sequential control pills to avoid menses altogether but in her case with her heavy periods I do not recommend that approach to start off --it may be something to be able to consider down the road. Medications: New levonorgestrel-ethinyl estrad 0.1-20 mg-mcg 1 tab PO DAILY 84 tabs 1RF Coding Level of Care Code New Pt Level 3 (90125) Diagnoses Anxiety F41.9 Depression, unspecified depression type F32.A Depression Type: unspecified Menorrhagia with regular cycle N92.0 IBS (irritable bowel syndrome) K58.9
[2023-04-15 14:25] VITALS: BP 118/68; BMI 20.3
== END 2023-04-15 15:19 | disposition home or self-care (01) ==
LOC: HO.HWSM 14:12
PROVIDERS: PCP Nurse Practitioner Family; Visit Provider Advanced Practice Midwife
DX: F41.9 Anxiety disorder, unspecified (principal); F32.A Depression, unspecified; N92.0 Excessive and frequent menstruation with regular cycle; K58.9 Irritable bowel syndrome, unspecified
CPT/HCPCS: 99203

== ENCOUNTER → 2023-04-15 14:12 | Outpatient (BNVA) | payer OTHER, SELFPAY | PROVIDERS: PCP Nurse Practitioner Family; Visit Provider Advanced Practice Midwife ==

== ENCOUNTER 2023-08-26 13:59 | Outpatient (AMB) | payer OTHER, SELFPAY ==
--- NOTE | 2023-08-26 14:01 | A.OFFPC_ITS ---
Vital Signs 08/26/23 14:02 Height 5 ft 2 in Weight 107 lb 2 oz BMI 19.6 BP 131/73 Blood Pressure Location Lt brachial Position Sitting Pulse 107 H Pulse Source Pulse Oximeter Pulse Oximetry (%) 100 Oxygen Delivery Method Room Air Intake Visit Reasons: Transfer of care Intake Note: Patient is here as transfer of care from [facility]. Allergies No Known Allergies Allergy (Verified 08/26/23 14:04) Medication List - Last Reconciled 08/26/23 by Renato Avila MD bupropion HCl XL (Wellbutrin XL) 150 mg PO QAM 30 days cholecalciferol (vitamin D3) 25 mcg PO DAILY 90 days epinephrine (EpiPen 2-Binh) 0.3 mg (0.3 mL) IM Q4H PRN levonorgestrel-ethinyl estrad 0.1-20 mg-mcg 1 tab PO DAILY Tobacco use date assessed: 08/26/23 Dental Screening Dental Screen Date: 08/26/23 Did you have a dental visit in the last 12 months?: Yes Did you have a dental problem in the last 6 months where you did not have access to dental care?: No Was dental information given to patient?: Patient has dentist HPI Transfer of care HPI Details Transfer of care Prior PCP:? Last office visit/CPE: Acute issue(s): Bipolar?disorder?and?patient?would?like?a?psychiatrist Intermittent?itchy?rash?which?she?associates?with?anxiety.??She?also?thinks?that ?it?may?be?due?to?contact?with?close?or?detergents?though?she? thinks?this?is?less?likely. Weight?loss.??Denies?unhealthy?relationship?with?food.??Decreased?appetite. PMHx: Bipolar D.o., Anx/Depression. ?Allergic dermatitis, SurgHx: None FHx: Mom: Healthy. Dad: HTN, Depression. GM: Liver CA, Breast CA SocHx: Quit cigs 2 yrs ago. Uses a nicotine losenge, EtOH 1-2 dr once a month. 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 1. Little interest or pleasure in doing things: more than half the days 2. Feeling down, depressed, or hopeless: several days 3. Trouble falling or staying asleep, or sleeping too much: not at all 4. Feeling tired or having little energy: not at all 5. Poor appetite or overeating: more than half the days 6. Feeling bad about yourself - or that you are a failure or have let yourself or your family down: not at all 7. Trouble concentrating on things, such as reading the newspaper or watching television: more than half the days 8. Moving or speaking so slowly that other people could have noticed. Or the opposite - being so fidgety or restless that you have been moving around a lot more than usual: several days 9. Thoughts that you would be better off or of hurting yourself in some way: not at all Total score: 8 Depression Screening Interpretation: Positive Depression Screening Done: Yes [id number] - PHQ-9 Billing: Yes Source: Developed by Drs. Randy Shetty, Marnie Luna, John Aguilar and colleagues, with an educational marla from [employer]. Thrive Questionnaire Date Thrive assessed: 08/26/23 I am a: Patient What is your living situation today?: I have a steady place to live Within the past 12 months, did the food you bought not last and you didn't have the money to get more?: Never true Within the past 12 months, did you worry whether your food would run out before you got money to buy more?: Never true Do you have trouble paying for medicines?: No Do you have trouble getting transportation to medical appointments?: No Do you have trouble paying your heating and electricity bill?: No Do you have trouble taking care of your child, family member or friend?: No Do you have trouble with day-to-day activities such as bathing, preparing meals, shopping, managing finances, etc.?: No Are you currently unemployed and looking for a job?: No Are you interested in more education?: No THRIVE Score: 0 AUDIT C Alcohol Use Questionnaire (AUDIT-C) 1. How often do you have a drink containing alcohol?: Monthly or less 2. How many drinks containing alcohol do you have on a typical day when you are drinking?: 1 or 2 3. How often do you have six or more drinks on one occasion?: Never Total Score: 1 ALEXA-7 AMB Questionnaire ALEXA-7 Date ALEXA - 7 assessed: 08/26/23 Feeling nervous, anxious, or on edge: 3 = Nearly every day Not being able to stop or control worryin = Nearly every day Worrying too much about different things: 3 = Nearly every day Trouble relaxin = Nearly every day Being so restless that it is hard to sit still: 1 = Several days Becoming easily annoyed or irritable: 3 = Nearly every day Feeling afraid as if something awful might happen: 1 = Several days Total ALEXA-7 score (0-4 normal; 5-9 mild; 10-14 moderate; 15-21 severe): 17 Source: Developed by Drs. Randy Shetty, Marnie Luna, John Aguilar and colleagues, with an educational marla from [employer]. ALEXA-7 Assessment Billing ALEXA-7 Assessment Tool: ALEXA-7 Assessment 78835 Review of Systems Const Denies chills, Denies fatigue, Denies fever(s), Denies headache(s) and Denies weakness ENT Denies dizziness and Denies headache(s) Card Denies chest pain, Denies lightheadedness, Denies dyspnea and Denies other (Palpitations) Resp Denies cough, Denies dyspnea, Denies wheezing and Denies other ( shortness of breath) Musc Denies numbness and Denies tingling Neuro Denies dizziness, Denies headache(s), Denies numbness, Denies tingling, Denies paresthesias and Denies weakness Psych Denies anxiety and Denies depression Endo Denies fatigue Aller/Immun Denies wheezing Physical exam (Primary Care) Vital Signs: Last Vital Signs Pulse 107 H 08/26/23 14:02 BP 131/73 08/26/23 14:02 Pulse Ox 100 08/26/23 14:02 Oxygen Delivery Method Room Air 08/26/23 14:02 BMI result Body Mass Index 19.6 Tobacco/Smoking Status: Tobacco use Status Tobacco use date assessed 08/26/23 08/26/23 14:13 Patient Tobacco Use Status Never used Tobacco 08/26/23 14:13 e-Cigarette/Vaping Use Never Used 08/26/23 14:13 PHQ-9: PHQ-9 Score PHQ-9: Total score 8 08/26/23 14:44 Depression Screening Interpretation: Positive Thrive Assessment: Date of Thrive Assessment Date Thrive assessed 08/26/23 08/26/23 14:13 Const General: no acute distress and well developed Nutritional Appearance: well nourished Orientation/consciousness: patient oriented x3 HENMT Head: Yes normocephalic and Yes atraumatic Eyes General: appearance normal, both eyes and all related structures Pupils: Equal, round and reactive pupils present EOM: EOMs intact bilaterally Resp Effort & Inspection: normal respiratory effort Auscultation: clear to auscultation bilaterally Cardio Rate: regular rate Rhythm: regular rhythm Heart sounds: S1 normal heart sound present, S2 normal heart sound present, no gallops, no murmurs and no rubs Neuro General: patient oriented x3 and gait normal Cranial nerves: Yes Equal, round and reactive pupils present Psych Affect: normal affect Assessment and Plan Assessment & Plan (1) Bipolar disorder: Code(s): F31.9 - Bipolar disorder, unspecified Plan: Patient?with?bipolar?disorder?and?anxiety/depression. She?is?on?bupropion?which?she?says?helps?her?feel? organized?and?focused?but?is?not?fully?helping?with?anxiety?and?depression. Will?make?a?referral?to?Psychiatry We?can?try?a?small?dose?of?Abilify?and?she?can?continue?bupropion Also?referred?to?nurse?navigator?to?help?her?connect?with?a?therapist (2) Depression with anxiety: Code(s): F41.8 - Other specified anxiety disorders Plan: As?above (3) Hives: Code(s): L50.9 - Urticaria, unspecified Plan: No?current?symptoms. She?can?use?Benadryl?if?this?happens?again?and?would?refer?her?to?immunology?for ?testing. (4) IBS (irritable bowel syndrome): Code(s): K58.9 - Irritable bowel syndrome without diarrhea Plan: Hydrate?well Can?try?soluble?fiber Treat?underlying?issues?such?as?anxiety-see?above (5) Weight loss: Code(s): R63.4 - Abnormal weight loss Plan: Un intended?weight?loss?and?patient?is?at?bottom?of?normal?range.??She?notes?that?s he?has?poor?appetite.??Likely?secondary?to?mood?disorders. She?does?not?feel?that?she?has?any?unhealthy?relationship?with?food?however. We?can?follow- up?on?this?at?her?next?visit.??If?patient?moves?into?underweight?category,?would ?workup?with?GI?and?or?nutrition (6) Laboratory exam ordered as part of routine general medical examination: Code(s): Z00.00 - Encounter for general adult medical examination without abnormal findings Plan: Check?lab Orders: Orders Comprehensive [place]. Panel Fast Today Z00.00 - Encounter for general adult medical examination without abnormal findings Microalbumin, Random (w Creat) Today I10 - Essential (primary) hypertension Vitamin B12 and Folate Today E53.8 - Deficiency of other specified B group vitamins Vitamin D 25-OH Total Today E55.9 - Vitamin D deficiency, unspecified Complete Blood Count Auto Diff Today Z00.00 - Encounter for general adult medical examination without abnormal findings Lipid Panel Today Z00.00 - Encounter for general adult medical examination without abnormal findings Free T4 (Free Thyroxine) Today E03.9 - Hypothyroidism, unspecified Triiodothyronine T3 Total Today E03.9 - Hypothyroidism, unspecified Thyroid Stimulating Hormone Today E03.9 - Hypothyroidism, unspecified Referrals Psychiatry Referral F31.9 - Bipolar disorder, unspecified Nurse Navigator Referral F31.9 - Bipolar disorder, unspecified Medications: New aripiprazole (Abilify) 2 mg PO BEDTIME 30 days 30 tabs 2RF Coding Level of Care Code Est Pt Level 4 (60312) Diagnoses Bipolar disorder F31.9 Depression with anxiety F41.8 Hives L50.9 IBS (irritable bowel syndrome) K58.9 Weight loss R63.4 Laboratory exam ordered as part of routine general medical examination Z00.00 Additional Codes ALEXA-7 Assessment Billing - ALEXA-7 Assessment Tool: ALEXA-7 Assessment 20378 ([id number])
[2023-08-26 14:02] VITALS: BP 131/73; PULSE 107; O2SAT 100; BMI 19.6
== END 2023-08-26 15:30 | disposition home or self-care (01) ==
PROVIDERS: PCP Nurse Practitioner Family; Visit Provider Family Medicine
DX: F31.9 Bipolar disorder, unspecified (principal); F41.8 Other specified anxiety disorders; L50.9 Urticaria, unspecified; K58.9 Irritable bowel syndrome, unspecified; R63.4 Abnormal weight loss
CPT/HCPCS: 96127; 99214

== ENCOUNTER 2023-10-21 07:29 | Outpatient (REF) | payer OTHER, SELFPAY ==
[2023-10-21 11:40] LABS: MANUAL DIFF FLAG NO
[2023-10-21 11:48] LABS: Basophils Absolute Auto 0.1 X10*3/uL (0.0-0.2); Basophils Percent Auto 1.2 % (0-2); Eosinophils Absolute Auto 0.2 X10*3/uL (0.0-0.4); Eosinophils Percent Auto 3.3 % (0-4); Hematocrit 40.8 % (37.0-47.0); Hemoglobin 13.4 g/dl (12.0-16.0); Imm Gran Abs Auto 0.02 X10*3/uL (0.00-0.03); Imm Gran Pct Auto 0.3 % (0.0-0.4); Lymphocytes Percent Auto 32.8 % (20-40); Mean Corpuscular HGB Conc 32.8 g/dl (31.0-35.0); Mean Corpuscular Hemoglobin 30.2 pg (27.0-33.0); Mean Corpuscular Volume 92.1 fL (80.0-98.0); Mean Platelet Volume 10.4 fL (9.4-12.3); Monocytes Absolute Auto 0.4 X10*3/uL (0.1-1.2); Monocytes Percent Auto 7.3 % (2-11); Neutrophils Absolute Auto 3.3 x10*3/uL (2.0-8.3); Neutrophils Percent Auto 55.1 % (45-73); Platelet Count 328 X10*3/uL (160-400); Red Blood Count 4.43 X10*6/uL (4.20-5.50); Red Cell Distribution Width 12.3 % (11.0-16.0)
[2023-10-21 12:24] LABS: Alanine Aminotransferase 11 U/L (0-31); Albumin Level 4.5 g/dL (3.5-5.0); Alkaline Phosphatase 56 U/L (39-117); Anion Gap 13 (12-20); Aspartate Amino Transferase 20 U/L (5-31); Bilirubin Total 0.3 mg/dL (0.0-1.0); Blood Urea Nitrogen 10 mg/dL (9-16); Calcium 9.5 mg/dL (8.4-10.2); Carbon Dioxide 24 mmol/L (22-29); Chloride 108 mmol/L (96-108); Cholesterol 132 mg/dL (<200); Estimated Glomerular Filt Rate > 60; Glucose Fasting 87 mg/dL (60-99); HDL Cholesterol 57 mg/dL (>40); LDL Cholesterol Calculated 65 mg/dL (<100); Potassium 3.9 mmol/L (3.3-5.1); Sodium 141 mmol/L (135-145); Total Protein 6.9 g/dL (6.5-8.0); Triglycerides 52 mg/dL (<150)
[2023-10-21 12:34] LABS: Folate 10.5 ng/mL (> or = 4.0); Vitamin B12 383 pg/mL (200-900)
[2023-10-21 12:36] LABS: Creatinine Urine 217.87 mg/dL
[2023-10-21 12:45] LABS: Free T4 (Free Thyroxine) 0.81 ng/dL (0.71-1.85); Thyroid Stimulating Hormone 1.04 uIU/mL (0.32-4.0); Vitamin D 25-OH Total 51.3 ng/mL (>30)
[2023-10-22 13:43] LABS: Triiodothyronine T3 Total 92 ng/dL (76-181)
== END 2023-10-21 07:30 | disposition home or self-care (01) ==
LOC: HO.HMGCLDS 07:29
PROVIDERS: PCP Family Medicine; Visit Provider Family Medicine
DX: Z00.00 Encounter for general adult medical examination without abnormal findings (principal); E55.9 Vitamin D deficiency, unspecified; E03.9 Hypothyroidism, unspecified; I10 Essential (primary) hypertension; E53.8 Deficiency of other specified B group vitamins
CPT/HCPCS: 36415; 80053; 80061; 82043; 82306; 82570; 82607; 82746; 84439; 84443; 84480; 85025

== ENCOUNTER 2023-12-16 11:23 | Outpatient (AMB) | payer OTHER, SELFPAY ==
--- NOTE | 2023-12-16 11:34 | A.OFFPC_ITS ---
Vital Signs 12/16/23 11:39 Height 5 ft 2 in Weight 108 lb 4 oz BMI 19.8 BP 100/60 Blood Pressure Location Rt brachial Position Sitting Respiration 16 Pulse 86 Pulse Source Pulse Oximeter Temp 97.7 F Temp Source Tympanic Pulse Oximetry (%) 97 Oxygen Delivery Method Room Air Intake Visit Reasons: er discharge/heart stopping/faining issues Intake Note: er F/U Allergies No Known Allergies Allergy (Verified 12/16/23 11:37) Medication List - Last Reconciled 12/16/23 by Renato Avila MD aripiprazole (Abilify) 2 mg PO BEDTIME 30 days bupropion HCl XL (Wellbutrin XL) 150 mg PO QAM 30 days cholecalciferol (vitamin D3) 25 mcg PO DAILY 90 days epinephrine (EpiPen 2-Binh) 0.3 mg (0.3 mL) IM Q4H PRN escitalopram oxalate (Lexapro) 20 mg PO DAILY levonorgestrel-ethinyl estrad 0.1-20 mg-mcg 1 tab PO DAILY Tobacco use date assessed: 08/26/23 Dental Screening Dental Screen Date: 08/26/23 HPI er discharge/heart stopping/faining issues HPI Details Follow-up?from?emergency?department?visit?on??for?reproducible?right- sided?chest?pain. Patient? had?had?chest?pain?for?the?past?5?weeks?since?having?a?dental?procedure?where?sh e?told?staff?at?the?emergency?department?that her?heart?had?stopped or?that?she coded ?during?was?not?teeth?extraction. Apparently?was?not?sent?for?any evaluation?at?that?time. At?ED?visit?on?November?,?chest?x-ray?and?EKG?were?normal except?EKG?had?a?few?PVCs.??Labs?were?normal. Patient?was?discharged?home?to?follow-up?with?PCP. Pt is on Abilify 2mg, bupropion 150mg, Lexapro 20mg for mood. Continues to work on getting a therapist. HPI Comments History of Present Illness Details Documentation assistance for Renato Avila MD, was provided by Durga Laughlin,? Wood Turner on 12/16/2023 at 12:07 PM DEIRDRE. I, Dr. Avila, have read, observed, and verified documentation. [facility] Medical History Depression IBS (irritable bowel syndrome) Surgical History No significant past surgical history Family History Father Hypertension No family history of mental disorder Paternal Grandmother No family history of mental disorder Breast cancer Social History Housing: House Alcohol intake: unknown Patient Tobacco Use Status: Never used Tobacco e-Cigarette/Vaping Use: Never Used Current occupational status: employed Current occupation: [employer] Cognitive needs: No Hearing needs: No Vision needs: No Female Reproductive History Menstrual Age of Menarche: 18 Questionnaire Thrive Questionnaire Date Thrive assessed: 08/26/23 ALEXA-7 AMB Questionnaire ALEXA-7 Date ALEXA - 7 assessed: 08/26/23 Source: Developed by Drs. Randy Shetty, Marnie Luna, John Aguilar and colleagues, with an educational marla from [employer]. Review of Systems Const Denies chills, Denies fatigue, Denies fever(s), Denies headache(s) and Denies weakness ENT Denies dizziness and Denies headache(s) Card Denies dyspnea Resp Denies cough, Denies dyspnea, Denies wheezing and Denies other (shortness of breath) Musc Denies numbness and Denies tingling Neuro Denies dizziness, Denies headache(s), Denies numbness, Denies tingling and Denies weakness Psych Reports anxiety and Reports depression Endo Denies fatigue Aller/Immun Denies wheezing Physical exam (Primary Care) Vital Signs: Last Vital Signs Temp 97.7 F 12/16/23 11:39 Pulse 86 12/16/23 11:39 Resp 16 12/16/23 11:39 BP 100/60 12/16/23 11:39 Pulse Ox 97 12/16/23 11:39 Oxygen Delivery Method Room Air 12/16/23 11:39 BMI result Body Mass Index 19.8 Tobacco/Smoking Status: Tobacco use Status Tobacco use date assessed 08/26/23 12/16/23 11:34 Patient Tobacco Use Status Never used Tobacco 12/16/23 11:34 e-Cigarette/Vaping Use Never Used 12/16/23 11:34 Thrive Assessment: Date of Thrive Assessment Date Thrive assessed 08/26/23 12/16/23 11:34 Const General: well developed; No acute distress Nutritional Appearance: well nourished Orientation/consciousness: patient oriented x3 [facility] Head: Yes normocephalic and Yes atraumatic Eyes General: appearance normal, both eyes and all related structures Pupils: Equal, round and reactive pupils present EOM: EOMs intact bilaterally Resp Effort & Inspection: normal respiratory effort Auscultation: clear to auscultation bilaterally Cardio Rate: regular rate Rhythm: regular rhythm Heart sounds: S1 normal heart sound present, S2 normal heart sound present, no gallops, no murmurs and no rubs Neuro General: patient oriented x3 and gait normal Cranial nerves: Yes Equal, round and reactive pupils present Psych Affect: normal affect Assessment and Plan Assessment & Plan (1) Chest pain: Code(s): R07.9 - Chest pain, unspecified Plan: Right-sided?chest?pain?and?workup?at?ED?was?negative?for?ACS Patient?does?rep ort?that?she?was?told?she?had?for?irregular?heartbeats?wall?at?the?dentist.??She ?denies?that?she?was?told?her?heart?stopped. She?does?note?that?pain?is?reproducible?with?deep?inspiration Chest?x-ray?was?negative This?is?likely?chest?wall?pain?or?costochondritis She?can?use?NSAIDs,?ice/heat?and?topicals?such?as?Aspercreme?with?lidocaine (2) Pre-syncope: Code(s): R55 - Syncope and collapse Plan: Fainting?or?near?fainting?and?she?had?noted?some?irregular?heartbeats. This?is?more?likely?related?to?anxiety?and?not?cardiogenic?in?origin Will?check?Holter?monitor?test?and?if?negative,?reassure?patient (3) Anxiety: Code(s): F41.9 - Anxiety disorder, unspecified Plan: Patient?with?history?of?severe?anxiety.??I?did?have?some?concerns?regarding?bipo lar?disorder?previously.??Re ferred?her?to?a?psych?med?provider?who?has?fully?evaluated?her?and?started?her?o n?Lexapro. Patient?tried?Abilify?which?she?says?did?not?cause?any?adverse?effects?but?was?n ot?helping?much?either. Lexapro?seems?to?be?helping Continue?to?follow-up?with?psych?med?provider She?still?does?not?have?a?therapist?and?they?are?working?on?this.??I?have?advise d?she?try?making?some?calls?herself?using Pyschology Today website Orders: Orders ECG holter monitor 48 hour Today R07.9 - Chest pain, unspecified, R55 - Syncope and collapse Medications: Discontinued aripiprazole (Abilify) Discontinued Reason: Doctor's Order 2 mg PO BEDTIME 30 days 30 tabs 2RF Coding Level of Care Code Est Pt Level 4 (81076) Diagnoses Chest pain R07.9 Pre-syncope R55 Anxiety F41.9
[2023-12-16 11:39] VITALS: BP 100/60; PULSE 86; RESP 16; TEMP 36.5; O2SAT 97; BMI 19.8
== END 2023-12-16 12:27 | disposition home or self-care (01) ==
PROVIDERS: PCP Family Medicine; Visit Provider Family Medicine
DX: R07.9 Chest pain, unspecified (principal); R55 Syncope and collapse; F41.9 Anxiety disorder, unspecified
CPT/HCPCS: 99214

== ENCOUNTER → 2023-12-28 14:48 | Outpatient (REF) | payer OTHER, SELFPAY ==
--- NOTE | 2023-12-28 14:50 | HM_ITS ---
* Total monitoring time 2 days. * Underlying rhythm is sinus with an average rate of 83/Min. * Occasional supraventricular ectopy. * Very rare ventricular ectopy. * No significant pauses or high-grade AV blocks. * Patient markers used in association with sinus rhythm and sinus tachycardia. * No diary events. MTDD
== END ==
LOC: HO.CARD 14:48
PROVIDERS: PCP Family Medicine; Visit Provider Family Medicine
DX: R07.9 Chest pain, unspecified (principal); R55 Syncope and collapse
CPT/HCPCS: 93225

== ENCOUNTER → 2023-12-28 14:50 | Outpatient (BNV) | payer OTHER, SELFPAY | PROVIDERS: PCP Family Medicine; Visit Provider Internal Medicine | DX: I47.10 Supraventricular tachycardia, unspecified (principal) | CPT/HCPCS: 93227 ==

== ENCOUNTER 2025-03-05 09:12 | Outpatient (AMB) | payer OTHER, SELFPAY ==
[2025-03-05 09:23] VITALS: BP 100/60; PULSE 102; TEMP 36.8; O2SAT 98; BMI 19.6
--- NOTE | 2025-03-05 09:23 | MHC.OFFWIV ---
Intake Vital Signs 03/05/25 09:23 Height 5 ft 2 in Weight 107 lb BMI 19.6 BP 100/60 Blood Pressure Location Lt brachial Position Sitting Pulse 102 H Pulse Source Pulse Oximeter Temp 98.2 F Temp Source Oral Pulse Oximetry (%) 98 Oxygen Delivery Method Room Air Intake Visit Reasons: EP-swollen tonsil, body ache, cough Intake Note: pt presents with body aches, swollen tonsils, chest congestion with productive cough, lung soreness, hard to catch her breath,upper back into shoulder pain for about a month Patient Tobacco Use Status: Never used Tobacco Allergies No Known Allergies Allergy (Verified 03/05/25 09:26) Do you need a note to return to daycare/school/sports/work: Yes HPI HPI Comments History of Present Illness Details History - The patient is a 30-year-old female presenting with symptoms of a viral upper respiratory infection and musculoskeletal pain. - She has been experiencing symptoms for five days, including muscle pain, cough, and sore lungs. - Last week, she had a fever of 102?F, with chills and hot flashes. - Initially, her cough produced blood-tinged sputum, which has since resolved. - She reports musculoskeletal pain in the neck and lower back, likely due to coughing. - No history of asthma or use of inhalers. - She denies fever, chills, CP, SOB, abd pain, or n/v/d. - She was in [place] last week and her family now all has the same symptoms. Physical Exam General: Cooperative, healthy appearing, comfortable and no acute distress Orientation/consciousness: Patient oriented x3 Limitations: Limited neck movement due to muscle pain Head: Normal to inspection Ears: Hearing grossly normal bilaterally, external ears normal and TM's normal bilaterally Nose: Normal external nose present, normal nares present, and no nasal discharge present. Face and sinus: Sinuses nontender to palpation. Mouth: Normal oral and palatal mucosa present and moist mucous membranes noted. Throat: Tonsils normal. Uvula is midline. Posterior oropharynx with erythema and no exudates. Eyes: Appearance normal, both eyes and all related structures Neck: Normal visual inspection, limited ROM due to muscle pain. No lymphadenopathy noted. Respiratory: Clear to auscultation bilaterally. Normal respiratory effort, able to speak in complete sentences. No respiratory distress, not tachypneic, no tripod positioning and no use of accessory muscles. Cardiovascular: Regular rate and rhythm. Normal S1 and S2 Skin: No rashes or lesions noted Patient was informed and verbally consented to the use of an ambient scribe for clinic note documentation during this visit [facility] Medical History Depression IBS (irritable bowel syndrome) Surgical History No significant past surgical history Family History Father Hypertension No family history of mental disorder Paternal Grandmother No family history of mental disorder Breast cancer Social History Housing: House Alcohol intake: unknown Patient Tobacco Use Status: Never used Tobacco e-Cigarette/Vaping Use: Never Used Current occupational status: employed 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 Cognitive needs: No Hearing needs: No Vision needs: No Female Reproductive History Menstrual Age of Menarche: 18 Review of Systems Const All systems reviewed & are unremarkable except as noted in HPI and below Physical Exam Vital Signs: Last Vital Signs Temp 98.2 F 03/05/25 09:23 Pulse 102 H 03/05/25 09:23 BP 100/60 03/05/25 09:23 Pulse Ox 98 03/05/25 09:23 Oxygen Delivery Method Room Air 03/05/25 09:23 BMI result Body Mass Index 19.6 Results AMB Rapid Strep AMB Rapid Strep Negative Last Edit by Xiomy Winn CMA on 03/05/25 09:37 Results Reviewed Results Reviewed: Laboratory Last Values Strep Scn Rapid Clinic Negative 03/05/25 09:36 Assessment & Plan Assessment & Plan (1) URI (upper respiratory infection): Code(s): J06.9 - Acute upper respiratory infection, unspecified Qualifiers: URI type: unspecified viral URI Qualified Code(s): J06.9 - Acute upper respiratory infection, unspecified Plan Most likely URI vs covid vs RSV vs flu rapid was negative plan - Symptomatic treatment with [id number] medications and rest is advised. - COVID, flu, and RSV tests were conducted to rule out other infections. - tylenol or motrin as needed - tessalon perles as needed for cough - flonase as needed daily - zyrtec D for daily - follow up with PCP Orders: Orders SARS-CoV2/FLU/RSV Today R09.89 - Other specified symptoms and signs involving the circulatory and respiratory systems AMB Rapid Strep Screen Today Z13.9 - Encounter for screening, unspecified Medications: New benzonatate 100 mg PO bid-tid PRN 21 caps 0RF Cough 7 days fluticasone propionate 50 mcg/actuation administer into each nostril 1 spray intranasal Q12H 16 grams 0RF cetirizine-pseudoephedrine 5-120 mg ER 1 tab PO BID 14 tabs 0RF 7 days Coding Level of Care Code Est Pt Level 3 (54431) Diagnoses Viral upper respiratory tract infection J06.9 URI type: unspecified viral URI
--- OUTSIDE RECORDS SUMMARY | 2025-03-05 10:00 | XMS_ITS | Clinical Summary ---
Author Organization [facility] Address [address] [place] [id number] Phone Care Team Providers Care Field Service Supervisor Name Role Phone Renato Avila MD Primary Care Provider Allergies No known active allergies Medications bupropion HCl (BUPROPION, WELLBUTRIN XL,) 150 mg ER 24 hr tablet Take by mouth. 08/03/2023 Active Social History Tobacco Use Types Packs/Day Years Used Date Smoking Tobacco: Never Assessed Education Answer Date Recorded Are you interested in more education? Not on carlos e 10/05/2023 Are you concerned about learning? Not on file 10/05/2023 No 10/05/2023 No 10/05/2023 Digital Access Answer Date Recorded No 10/05/2023 No 10/05/2023 Reliable internet access at home? Not on file 10/05/2023 Device with a working camera? Not on file Comments Unknown Sex and Gender Information Value Date Recorded Sex Assigned at Not on file Legal Sex Female 9:46 AM EDT Gender Identity Not on file Sexual Orientation Not on file Last Filed Vital Signs Vital Sign Reading Time Taken Comments Blood Pressure 123/80 10/05/2023 12:27 PM EDT Pulse 68 10/05/2023 12:27 PM EDT Temperature 37 C (98.6 F) 10/05/2023 12:27 PM EDT Respiratory Rate 17 10/05/2023 12:27 PM EDT Oxygen Saturation 100% 10/05/2023 12:27 PM EDT Inhaled Oxygen Concentration - - Weight 49.9 kg (110 lb) 10/05/2023 12:27 PM EDT Height 157.5 cm (5' 2 ) 10/05/2023 12:27 PM EDT Body Mass Index 20.12 10/05/2023 12:27 PM EDT Plan of Treatment Health Maintenance Due Date Last Done Comments Adult Td,Tdap Booster 1997 DEPRESSION SCREENING 2009 SMOKING Hx and SMOKELESS TOB ACCO SCREENING 2010 HEPATITIS C SCREENING 2015 HIV ONE-TIME SCREENING (18-6 5 YEARS) 2015 PAP SMEAR 2018 INFLUENZA VACCINE (#1) 2024 COVID-19 VACCINE (2024-2 6 season) 2024 HEPATITIS A VACCINES Aged Out No long er eligible based on patient's age to complete this topic HIB VACCINES Aged Out No longer eligi ble based on patient's age to complete this topic IPV VACCINES Aged Out No longer eligi ble based on patient's age to complete this topic MENINGOCOCCAL VACCINES (ACWY) Aged Out No longer eligible based on patient's age to complete this topic MENINGOCOCCAL VACCINES (B) Aged Out N o longer eligible based on patient's age to complete this topic PNEUMOCOCCAL VACCINES (0-49 years) Aged Out No longer eligible based on patient's age to complete this topic Medical Devices Not on file Insurance [facility] CIGNA TPA CIGNA TPA CIGNA TPA CIGNA TPA CIGNA TPA Care Teams Field Service Supervisor Relationship Specialty Start Date End Date Renato Avila MD PCP - General Family Medicine 10/05/23 Additional Source Comments The information contained in this document represents components of the legal health record. It is not the complete legal health record.[facility]
== END 2025-03-05 09:55 | disposition home or self-care (01) ==
PROVIDERS: PCP Family Medicine; Visit Provider Physician Assistant Medical
DX: Z13.9 Encounter for screening, unspecified (principal); J06.9 Acute upper respiratory infection, unspecified

== ENCOUNTER 2025-03-05 09:12 | Outpatient (REF) | payer OTHER, SELFPAY ==
[2025-03-05 14:31] LABS: Resp Syncy Virus RNA Qual PCR NEGATIVE (Negative); SARS COV2 PCR INHOUSE NEGATIVE (Negative)
== END 2025-03-05 09:13 | disposition home or self-care (01) ==
LOC: HO.LNP 09:12
PROVIDERS: PCP Family Medicine; Visit Provider Physician Assistant Medical
DX: R09.89 Other specified symptoms and signs involving the circulatory and respiratory systems (principal); Z11.52 Encounter for screening for COVID-19
CPT/HCPCS: 87637; 87880